=== PATIENT | female | born 1960 | race Caucasian/White ===

== ENCOUNTER 2021-10-14 05:55 | Day surgery (SDC) | payer OTHER ==
[2021-10-14] MEDS ORDERED: Lactated Ringers 1,000 ML IV SCH (06:00)
[2021-10-14] MEDS ORDERED: DIPRIVAN 200 MG/20 ML IV ONE ×2 (07:32→08:11)
[2021-10-14] MEDS ORDERED: Xylocaine-Mpf 2% 5 Ml Vial ONE (07:32)
[2021-10-14 09:10] VITALS: O2SAT 97
[2021-10-14 09:11] VITALS: BP 126/71; PULSE 66
--- NOTE | 2021-10-14 09:42 | OP ---
SURGERY DATE/TIME: 10/14/2021 PREOPERATIVE DIAGNOSES: 1) Screening exam. 2) Strong family history of colon cancer. POSTOPERATIVE DIAGNOSIS: Sigmoid diverticulosis otherwise normal colon. PROCEDURE: Colonoscopy. SURGEON: Dr. Georgi Burks. ANESTHESIA: MAC. Medications given by anesthesia department. HISTORY: The patient is a 61-year-old white female presents now for screening colonoscopy. The patient was appraised of the risks of the procedure including the risk of perforation, phlebitis, untoward reaction to medication, bleeding and missed lesions. The patient verbalized her understanding and desired to have the procedure performed. DESCRIPTION OF PROCEDURE: The patient was given the medications by the anesthesia department. She had continuous pulse oximetry, ECG monitoring, intermittent blood pressure monitoring during the examination. She was placed in the left lateral decubitus position. A digital rectal examination was performed and revealed normal anal sphincter tone and no masses. The flexible Olympus pediatric colonoscope was used to intubate the rectum. A view of the colon was developed sequentially to the cecum. Upon insertion and withdrawal, including a retroflex view in the rectum was noted scattered sigmoid diverticula otherwise normal colon. The scope was removed from the patient who tolerated the procedure well and was sent back to OP recovery in good condition. The prep was noted to be fair to good.
== END 2021-10-14 09:22 | disposition home or self-care (01) ==
LOC: SDC 05:55
PROVIDERS: ATTEND Family Medicine
DX: Z12.11 Encounter for screening for malignant neoplasm of colon (principal); Z80.0 Family history of malignant neoplasm of digestive organs; K57.30 Diverticulosis of large intestine without perforation or abscess without bleeding
CPT/HCPCS: J2704